=== PATIENT | male | born 1965 ===

== ENCOUNTER 2018-02-05 07:39 | Day surgery (SDC) | payer OTHER | END 2018-02-05 13:40 | disposition home or self-care (01) | LOC: AMB-ENDOS 07:39 | DX: C20 Malignant neoplasm of rectum (principal); Z12.11 Encounter for screening for malignant neoplasm of colon ==

== ENCOUNTER 2018-03-19 05:20 | Day surgery (SDC) | payer OTHER ==
[~2018-03-19 05:20] MED LIST: COZAAR100 MG
== END 2018-03-19 12:05 | disposition home or self-care (01) ==
LOC: CIR.AMB 05:20
DX: C20 Malignant neoplasm of rectum (principal)
CPT/HCPCS: 36561; C1751

== ENCOUNTER 2018-12-31 10:07 | Day surgery (SDC) | payer OTHER | END 2018-12-31 15:00 | disposition home or self-care (01) | LOC: AMB-ENDOS 10:07 | DX: C20 Malignant neoplasm of rectum (principal); K64.8 Other hemorrhoids ==